=== PATIENT | male | born 1985 | race Caucasian/White ===

== ENCOUNTER 2018-04-10 19:02 | Emergency (ER) | payer OTHER ==
--- NOTE | 2018-04-10 19:47 | ED Physician Documentation ---
PD HPI URI - Stated complaint Stated Complaint: COUGH/ST - Chief complaint Chief Complaint: Resp - History obtained from History obtained from: Patient - History of Present Illness Timing - onset: Other (32-year-old gentleman who has been sick for 5 days, started with fevers chills and body aches but that only lasted a couple of days and now progressed to more sore throat productive cough with mild wheezing. He has no history of asthma.) Review of Systems Constitutional: reports: Fever (gone), Chills (gone) Nose: reports: Rhinorrhea / runny nose Throat: reports: Sore throat Cardiac: denies: Chest pain / pressure, Palpitations Respiratory: reports: Dyspnea, Cough, Wheezing PD PAST MEDICAL HISTORY - Present Medications Home Medications: Ambulatory Orders Medication Instructions Recorded Confirmed Benzonatate [Tessalon Perle] 100 - 200 mg PO TID PRN #30 capsule 04/10/18 Guaifenesin/Pseudoephedrne HCl 1 each PO BID PRN #20 tab.er.12h 04/10/18 [Mucinex D ER 600-60 mg Tablet] Ibuprofen [Motrin] 800 mg PO Q8H PRN #30 tablet 04/10/18 - Allergies Allergies/Adverse Reactions: Allergies Allergy/AdvReac Type Severity Reaction Status Date / Time No Known Drug Allergies Allergy Verified 04/10/18 19:06 PD ED PE NORMAL - Vitals Vital signs reviewed: Yes - General General: Alert and oriented X 3, No acute distress - HEENT HEENT: PERRL, EOMI, Other (Red tonsils, no exudates) - Neck Neck: Supple, no meningeal sign, No bony TTP, No adenopathy - Cardiac Cardiac: RRR, No murmur - Respiratory Respiratory: No respiratory distress, Clear bilaterally - Abdomen Abdomen: Non tender - Derm Derm: No rash - Neuro Neuro: Alert and oriented X 3, Normal speech Results - Vitals Vitals: Vital Signs - 24 hr 04/10/18 19:04 Temperature 36.6 C Heart Rate 76 Respiratory 18 Rate Blood Pressure 142/89 H O2 Saturation 97 Oxygen O2 Source Room air - Labs Labs: Laboratory Tests 04/10/18 19:50 Group A Strep Rapid Negative - Rads (name of study) 2v chest Radiology: EMP read contemporaneously (normal) Departure - Departure Disposition: 01 Home, Self Care Clinical Impression: Upper respiratory tract infection Qualifiers: URI type: unspecified viral URI Qualified Code(s): J06.9 - Acute upper respiratory infection, unspecified Condition: Good Record reviewed to determine appropriate education?: Yes Instructions: ED Viral Syndrome Prescriptions: Benzonatate [Tessalon Perle] 100 - 200 mg PO TID PRN #30 capsule PRN Reason: Cough Guaifenesin/Pseudoephedrne HCl [Mucinex D ER 600-60 mg Tablet] 1 each PO BID PRN #20 tab.er.12h PRN Reason: congestion Ibuprofen [Motrin] 800 mg PO Q8H PRN #30 tablet PRN Reason: PAIN &/OR FEVER Comments: Call your doctor to arrange a follow-up appointment, make the next available appointment. In the interim, return anytime if worse or if new symptoms develop. Your blood pressure was elevated today on check into the emergency department. This does not mean that you have hypertension, it is a common phenomenon to come to the emergency department and have elevated blood pressure. I recommend that you see your primary care physician within the week to have it rechecked when you are feeling better.
--- NOTE | 2018-04-10 20:26 | XRAY Report ---
Reason: cough Procedure Date: 04/10/2018 Accession Number: [id number] / [id number] Procedure: XR - Chest 2 View X-Ray CPT Code: 44904 FULL RESULT: EXAM: CHEST RADIOGRAPHY EXAM DATE: 04/10/2018 08:08 PM. CLINICAL HISTORY: Cough. COMPARISON: None. TECHNIQUE: 2 views. FINDINGS: Lungs/Pleura: No focal opacities evident. No pleural effusion. No pneumothorax. Normal volumes. Mediastinum: Heart and mediastinal contours are unremarkable. Other: None. IMPRESSION: Normal 2-view chest radiography. [facility]
[2018-04-10 20:42] VITALS: BP 126/88
== END 2018-04-10 20:45 | disposition home or self-care (01) ==
LOC: ED 19:02
DX: J06.9 Acute upper respiratory infection, unspecified (principal); R03.0 Elevated blood-pressure reading, without diagnosis of hypertension
CPT/HCPCS: 71046; 87070; 87430; 99283

== ENCOUNTER 2020-05-04 14:30 | Outpatient (CLI) | payer OTHER ==
[2020-05-04 15:18] VITALS: BP 123/82
--- NOTE | 2020-05-04 15:18 | SLEEP CARE CONSULTATION ---
Information from patient questionnaire entered by Angel Jessica. I have reviewed and concur with the information entered by Angel Jessica. This document represents the service I personally performed and the decisions made by me, Silva Baldwin ARNP. History of Present Illness Service Date and Time: 05/04/2020 1430 Reason for Visit: New patient Chief Complaint: reports: Unrefreshed sleep, Snoring, Excessive daytime sleepiness, Fatigue, Other (Teeth grinding) Date of Onset: 3 years Usual bedtime: 10 PM Time it takes to fall asleep: 2 hours/3 hours Snores at night: Yes (sometimes) Observed to quit breathing while asleep: Yes Sleeps alone due to snoring: No Number of times waking at night: Three times Reasons for waking at night: reports: Choking, Gasping for air, Bathroom, Other (cough) Toss, Turn, or Twitch while sleeping: Yes Recalls having dreams: No Usually gets out of bed at: 0530 Feels refreshed in the morning: No Morning headache: No Sleepy or fatigued during the day: Yes Ever fallen asleep while driving: Yes (drowsy driving, no accidents) Takes day naps: No Dreams during day naps: No Prior sleep studies: No Additional HPI information: I had the pleasure of seeing MAGGI NEFF today regarding the possibility of him having a sleep disorder. His current complaints are unrefreshed sleep, excessive daytime sleepiness, fatigue and teeth grinding. His has not no ticed pauses in breathing. At his yearly checkup he discussed fatigue/sleepiness during the day, nightly gasping for air and some nightly anxiety. He snores when he is really tired, but his is able to sleep in same room. She has noticed that he is gasping for air when sleeping and also grinding his teeth. He feels it is getting progressively worse and has some jaw/teeth pain. His father snores loudly but has not been diagnosed with sleep apnea. 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 Patient is and lives in [place]. Have you smoked in the past 12 months: No Alcohol use: Yes Alcohol amount and frequency: 4 beers on weekends Caffeine use: Yes Caffeine amount and frequency: Once a day, 1 cup Family History Family history of sleep disordered breathing: Yes (Father) Family Hx Sleep Apnea: Father: Snoring Allergies and Home Medications Drug allergies reviewed: Yes (NKDA) Home medication list reviewed: Yes Allergy and home medication list: Terbinafine Flexeril Review of Systems Weight gain over past 5 years: 20 Cardiovascular: reports: chest pain, have to sleep sitting up. denies: high blood pressure Respiratory: reports: shortness of breath Gastrointestinal: reports: heartburn Neurological: denies: headaches Psychiatric: reports: anxiety Ear/Nose/Throat: reports: nasal congestion, sinus problems, dry mouth/throat (for past month), wisdom teeth removed. denies: tonsillectomy Musculoskeletal: reports: neck pain, back pain, muscle pain or cramping Physical Exam Blood Pressure: 123/82 Cuff size: wrist Heart Rate: 73 O2 Saturation: 98 Height: 6 ft Weight: 256 lb Body Mass Index: 34.7 BMI Classification: Obese Neck circumference: 16 (inches) Nostrils: patent to airflow Mouth and throat: narrow oropharynx Soft palate: long Hard palate: arched Uvula: normal Uvula visualization: 25% Mallampati Class III Tongue: enlarged in size with teeth mustafa on lateral edges Tonsils: 1+ Chin and jaw: normal size and position Neck: normal w/o lymphadenopathy or thyromegaly Heart: regular rate and rhythm Lungs: clear bilaterally Impression and Plan 1. Suspected Obstructive Sleep Apnea-Hypopnea Syndrome, as suggested by a history of loud and irregular snoring, gasping or choking in sleep, unrefreshed sleep, cognitive impairment, and excessive daytime sleepiness. Narrow oropharynx and obesity are common predisposing factors for obstructive sleep apnea-hypopnea syndrome. I recommend proceeding to polysomnography to confirm the diagnosis and to assess severity. If the patient has significant sleep disordered breathing, a manual CPAP titration study will also be performed to find the optimal treatment pressure. I informed the patient of what the sleep studies involve and after some discussion, obtained agreement to proceed. The pathophysiology of obstructive sleep apnea-hypopnea syndrome was discussed with the patient and health risks of cardiovascular and cerebrovascular disease if not treated. Risks of drowsy driving discussed in detail and patient advised to avoid long distance driving and to pull out operator at the first sign of drowsiness. Patient agreed to plan. * Schedule polysomnography +- manual CPAP titration study and return in 1-2 weeks after the study to discuss result and initiate therapy. * Avoid long distance driving or driving when feeling sleepy. * Avoid alcohol, sedative and muscle relaxant around bedtime. * Attempt to lose weight. * Review instructions provided by trained office staff on how to prepare for the sleep study. * Return for follow-up after sleep study completed. Counseling Topics: Weight loss health impact Visit Type: In Office Time Spent with Patient (minutes): 31 Provider Statement: I spent 100% of the Face to Face Visit with the patient with greater than 50% spent counseling the patient and coordination of care.
== END 2020-05-04 14:31 | disposition home or self-care (01) ==
LOC: SC 14:30
PROVIDERS: ATTEND Nurse Practitioner Family
DX: R06.83 Snoring (principal); G47.8 Other sleep disorders; R41.89 Other symptoms and signs involving cognitive functions and awareness; G47.10 Hypersomnia, unspecified; E66.9 Obesity, unspecified; Z68.34 Body mass index [BMI] 34.0-34.9, adult
CPT/HCPCS: 99203; 99212

== ENCOUNTER 2020-06-02 13:43 | Outpatient (CLI) | payer OTHER ==
--- NOTE | 2020-06-02 14:22 | SLEEP CARE CONSULTATION ---
Information from patient questionnaire entered by Angel Jessica. I have reviewed and concur with the information entered by Angel Jessica. This document represents the service I personally performed and the decisions made by , Silva Baldwin ARNP. History of Present Illness Service Date and Time: 06/02/2020 1343 Initial [place] Sleepiness Scale score: 18 (in 2020) Current [place] Sleepiness Scale score: 18 Additional HPI information: MAGGI NEFF returns for follow up and results of the recently performed polysomnography. I explained the pathophysiology behind obstructive sleep apnea. We then spent quite a bit of time discussing different treatment options. For mild obstructive sleep apnea, surgery and oral appliance are alternatives to nasal CPAP therapy but in moderate or severe cases, nasal CPAP is the most effective a nd reliable treatment. Because apnea is primarily in supine position, then positional management therapy could be effective. Methods discussed such as positioning with pillows, using a T-shirt with tennis balls in the back, and shown commercial products that have a pillow format on back to prevent supine sleep. I reviewed the impact of weight changes on sleep apnea and strongly recommended losing weight. Patient counseled not drink alcohol less than 4 hours before bedtime as it can increase snoring and apnea. Patient was cautioned about risks of drowsy driving until sleepiness symptoms resolve. Patient denies drowsy driving. Sleep Study - Results Type of Sleep Study: Polysomnography (Zhang) Prior sleep studies: No Polysomnography/Home Sleep Study results: Interpretation: In-laboratory Attended Nocturnal Polysomnography. The patient had normal sleep efficiency. The sleep architecture was abnormal for sleep fragmentation and reduced amount of time spent in slow wave sleep (N3). Respiratory monitoring showed mild central sleep apnea~hypopnea (AHI = 10.3) associated with frequent arousals, oxyhemoglobin desaturation but not h ypoxia (billy oxygen saturation of 91 .0%). The patient only slept in supine position during this study. Snoring was light to loud in intensity. There was no periodic leg movement of sleep. Cardiac rhythm was normal sinus rhythm. No [id number] behavior (parasomnia) observed during the night. Recommendations: 1. The patient has mild central sleep apnea and hypopnea - ICD 047.31. Positive airway pressure therapy is indicated. Common causes of central sleep apnea include congestive heart failure1 DESIGN PAINTER disorders, and opiate drugs. Central apneas ca11 also be secondary to obstructive apneas. Recommend the patient return for a CPAP/BiPAP titration study to [address] the optimal treatment mode and pressure setting. Allergies and Home Medications Home medication list reviewed: Yes (no new meds) Review of Systems Review of systems same as previous: Yes (no changes) Physical Exam Heart Rate: 86 O2 Saturation: 96 Height: 6 ft Weight: 250 lb Body Mass Index: 33.9 BMI Classification: Obese Impression and Plan 1. Central Sleep Apnea-Hypopnea Syndrome, mild, with lowest oxygen saturation of 91%. Obviously this is the cause of the patients symptoms of unrefreshed sleep, and excessive daytime sleepiness. Positive pressure therapy could benefit anxiety. Patient has mild central sleep apnea that may need BIPAP or CPAP therapy. I advised patient that it would be best to get a titration study to determine type of therapy needed. A manual titration study will be completed to find optimal treatment pressure. Compliance guidelines also reviewed. * Titration study * Attempt to lose weight. * Avoid alcohol consumption near bedtime. * Avoid supine sleep until using CPAP. * The patient is again cautioned about driving until sleepiness completely resolves. * Return after titration study to start PAP treatment. Counseling Topics: Weight loss health impact Visit Type: In Office Time Spent with Patient (minutes): 20 Provider Statement: I spent 100% of the Face to Face Visit with the patient with greater than 50% spent counseling the patient and coordination of care.
== END 2020-06-02 13:44 | disposition home or self-care (01) ==
LOC: SC 13:43
PROVIDERS: ATTEND Nurse Practitioner Family
DX: G47.31 Primary central sleep apnea (principal); E66.9 Obesity, unspecified; Z68.33 Body mass index [BMI] 33.0-33.9, adult
CPT/HCPCS: 99212; 99213

== ENCOUNTER 2020-06-24 11:05 | Outpatient (CLI) | payer OTHER ==
--- NOTE | 2020-06-24 11:36 | SLEEP CARE CONSULTATION ---
Information from patient questionnaire entered by Emelyn Woodard. I have reviewed and concur with the information entered by Emelyn Woodard. This document represents the service I personally performed and the decisions made by , Silva Baldwin ARNP. History of Present Illness Service Date and Time: 06/24/2020 1105 Initial [place] Sleepiness Scale score: 18 (in 2019) Current [place] Sleepiness Scale score: 19 Additional HPI information: MAGGI NEFF returns for follow up of the sleep study with a manual CPAP titration study performed on 06-07-20 at [facility]. The patient was informed of the following polysomnography findings: Recommendations: 1. Central sleep apnea-hypopnea .... ICD 047.33, mild (AHI was 10.3), adequately controlled with CPAP of 7 cmH20. Nasal CPAP therapy is, therefore, recommended at the pressure. AutoCPAP set between 5 and 10 cmH20 is also appropriate. Given the good response to CPAP, the sleep-disordered breathing is most likely obstructive rather than central sleep apnea. With BMI of 32.5 Kg/M2, weight loss is also recommended. I explained that the optimal CPAP pressure is 7 cmH2O and 5-10 cmH2O also considered appropriate. Sleep Study - Results Type of Sleep Study: Polysomnography (Titration performed at [facility]) Prior sleep studies: Yes (Poly) Year and Where: 2020 - [facility] Polysomnography/Home Sleep Study results: 1. Central sleep apnea-hypopnea .... ICD 047.33, mild (AHI was 10.3), adequately controlled with CPAP of 7 cmH20. Nasal CPAP therapy is, therefore, recommended at the pressure. AutoCPAP set between 5 and 10 cmH20 is also appropriate. Given the good response to CPAP, the sleep-disordered breathing is most likely obstructive rather than central sleep apnea. With BMI of 32.5 Kg/M2, weight loss is also recommended. Allergies and Home Medications Home medication list reviewed: Yes (no changes) Review of Systems Review of systems same as previous: Yes (no changes) Physical Exam Heart Rate: 69 O2 Saturation: 99 Height: 6 ft Weight: 258 lb Body Mass Index: 34.9 BMI Classification: Obese Impression and Plan 1. Central Sleep Apnea-Hypopnea Syndrome, mild. Follow up on titration study at [place] on 06-07-20. His optimal pressure was 7 cmH2O with excellent control of apnea. He had 0 residual AHI at this pressure. A 5-10 cmH2O setting would also be adequate for this patient. The patient will be started on nasal autoCPAP therapy with pressure set at 5-10 cmH2O. Compliance guidelines also reviewed. A copy of compliance guidelines will be given for reference at check out. Patient's apnea severity and rationale for treatment to reduce apnea, improve sleep quality and reduce cardiovascular and cerebrovascular events was reviewed. I also reviewed the benefit of consistent device use of CPAP for anxiety. 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 * Nasal auto CPAP therapy, pressure at 5-10 cm H2O. * Attempt to lose weight. * Avoid alcohol consumption near bedtime. * Avoid supine sleep until using CPAP. * The patient is again cautioned about driving until sleepiness completely resolves. * Return one month after CPAP obtained. I will assess response to therapy and compliance at that time. Counseling Topics: Weight loss health impact Visit Type: In Office Time Spent with Patient (minutes): 20 Provider Statement: I spent 100% of the Face to Face Visit with the patient with greater than 50% spent counseling the patient and coordination of care.
== END 2020-06-24 11:06 | disposition home or self-care (01) ==
LOC: SC 11:05
PROVIDERS: ATTEND Nurse Practitioner Family
DX: G47.31 Primary central sleep apnea (principal); E66.9 Obesity, unspecified; Z68.34 Body mass index [BMI] 34.0-34.9, adult
CPT/HCPCS: 99212; 99213

== ENCOUNTER 2020-09-01 11:58 | Outpatient (CLI) | payer OTHER ==
--- NOTE | 2020-09-01 12:51 | SLEEP CARE CONSULTATION ---
Information from patient questionnaire entered by Emelyn Woodard. I have reviewed and concur with the information entered by Emelyn Woodard. This document represents the service I personally performed and the decisions made by , Silva Baldwin ARNP. History of Present Illness Service Date and Time: 09/01/2020 1158 Previous diagnosis: Mild, Central Sleep Apnea-Hypopnea Syndrome AHI: 10.3 (in 2020) Reason for follow up: first compliance Equipment type: CPAP Equipment obtained from: Other ([facility]; [employer]) Mask style: Nasal (cushion) Backup mask available: No (will keep old mask when replaced) Last cushion change: on month Prior sleep studies: Yes (Poly) Year and Where: 2020 - [facility] HPI additional information: MAGGI NEFF was diagnosed to have mild, AHI 10.3, central sleep apnea-hypopnea syndrome and returns via Telehealth visit today for CPAP therapy first compliance follow-up. CPAP Compliance Data - Data Reviewed with Patient Average duration of nightly device use: 4 hr 33 min Compliance rate %: 70 Current pressure setting (cmH2O): 5-10 (median 6.1, avg 8.0, max 8.2) Humidity settin Heated hose settin Average residual AHI: 6.3 Average large leak: 9 min 58 sec Subjective Patient concerns: denies: aerophagia, mask discomfort, air blowing in eyes, mask leak noise, condensation in mask/hose, nasal congestion, dry mouth, nose, throat, epistaxis, other Observed to snore while using device: No Current pressure setting perceived as: comfortable On therapy, patient: reports: sleeping better, awakening more refreshed, being more awake and alert during the day, more rested overall. denies: drowsiness while driving Initial [place] Sleepiness Scale score: 18 (in 2019) Current [place] Sleepiness Scale score: 14 Allergies and Home Medications Home medication list reviewed: Yes (omeprazole) Review of Systems Review of systems same as previous: No (heartburn) Physical Exam Vital signs obtained and entered by: Telehealth visit to reduce exposure during Covid pandemic Height: 6 ft Impression and Plan 1. Central Sleep Apnea-Hypopnea Syndrome, mild, with fair treatment compliance and fair apnea control. On CPAP therapy, the patient has better sleep quality and is more rested overall. Patient has noted good relief but has stopped using his CPAP due to the [employer] recall. He [place] and it is very hot humid there and he gets a strange odor from his machine. He did not notice this when he was at home. He has not noticed any black particles in the machine. He has registered with the recall and is awaiting hearing from them about replacement devices. Patient does have insurance who have said they will replace a recalled device with a another device that is not on recall. I will order him a device replacement and try to get it shipped to him. 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 Patient's apnea severity and rationale for treatment to reduce apnea, improve sleep quality and reduce cardiovascular and cerebrovascular events was reviewed. I also reviewed the benefit of consistent device use of CPAP for anxiety. I will adjust his pressures to help reduce his residual AHI that is mildly elevated. His mean pressure will be 8 -10 cmH2O. * Change auto CPAP pressure to 8-10 cmH2O * Replace device on the recall per * Notify me if snoring with mask or feeling that the pressure is too much or too little * Attempt to lose weight * Call this office if any problems using CPAP * Return for follow up in 1-2 months, or sooner if concerns arise Counseling Topics: Spare mask, Weight loss health impact Visit Type: Telehealth Video Video Type: VSee Patient Location: [facility] Location of Provider: Office Patient agrees and consents to this telehealth visit type: Yes Patient agrees to have their insurance billed: Yes Time Spent with Patient (minutes): 23 Provider Statement: I spent 100% of the Telehealth Video Call with the patient with greater than 50% spent counseling the patient and coordination of care.
== END 2020-09-01 11:59 | disposition home or self-care (01) ==
LOC: SC 11:58
PROVIDERS: ATTEND Nurse Practitioner Family
DX: G47.31 Primary central sleep apnea (principal)